=== PATIENT | female | born 1945 | race Two or more races ===

== ENCOUNTER → 2017-10-04 | Outpatient (CLI) | payer MEDICARE, OTHER | END | disposition home or self-care (01) | LOC: HKI 13:56 | DX: Z09 Encounter for follow-up examination after completed treatment for conditions other than malignant neoplasm (principal); M25.561 Pain in right knee; I10 Essential (primary) hypertension; E11.9 Type 2 diabetes mellitus without complications; E03.9 Hypothyroidism, unspecified; M19.90 Unspecified osteoarthritis, unspecified site; Z87.11 Personal history of peptic ulcer disease; Z96.651 Presence of right artificial knee joint | CPT/HCPCS: 73562; 73562-50 ==